=== PATIENT | male | born 1965 | race American Indian/Alaskan Native ===

== ENCOUNTER 2020-04-09 11:28 | Outpatient (CLI) | payer BC ==
--- NOTE | 2020-04-09 14:01 | Cat Scan Report ---
CT abdomen pelvis wo con INDICATION: URINARY TRACT INFECTION. TECHNIQUE: All CT scans at this location are performed using CT dose reduction for ALARA by means of automated e xposure control. COMPARISON: None available. FINDINGS: Lung bases are clear of acute disease. Liver, gallbladder, spleen, pancreas, kidneys and adrenals are unremarkable on this noncontrast exam. No renal calculi or hydronephrosis. Abdominal aorta is normal in size. There are a few shotty left periaortic nodes but no significant adenopathy. Pelvis Normal appendix. Urinary bladder and distal ureters are negative. No free fluid, inflammation or pelv ic adenopathy. No significant bowel abnormalities. No skeletal lesions. IMPRESSION: 1. No acute abnormality. Signer Name: Pedro Saha MD Signed: 04/09/2020 1:57 PM Workstation Name: [id number]
== END 2020-04-09 11:29 | disposition home or self-care (01) ==
LOC: CT 11:28
PROVIDERS: ATTEND Urology
DX: N39.0 Urinary tract infection, site not specified (principal)
CPT/HCPCS: 74176